=== PATIENT | male | born 1980 | race Caucasian/White ===

== ENCOUNTER 2017-10-19 18:51 | Emergency (ER) | payer BC ==
[2017-10-19] MEDS ORDERED: Ketorolac 30 MG/ML SDV IVPUSH ONE (19:32)
[2017-10-19] MEDS ORDERED: Sodium Chloride 0.9% 1,000 ML IV ONE (19:32)
[2017-10-19] MEDS ORDERED: Sodium Chloride 0.9% 10 ML Syringe FLUSH PRN (19:32)
[2017-10-19] MEDS ORDERED: Sodium Chloride 0.9% 2.5 ML Syringe FLUSH PRN (19:32)
[2017-10-19] MEDS ORDERED: HYDROmorphone 2 MG/ML Syringe IVPUSH ONE (19:32)
--- NOTE | 2017-10-19 19:37 | EDM.PDOC ---
ED HPI GENERAL MEDICAL PROBLEM - General Chief Complaint: Back Pain or Injury Stated Complaint: PT HAS LOWER BACK PAIN Time Seen by Provider: 10/19/17 19:26 - History of Present Illness INITIAL COMMENTS - FREE TEXT/NARRATIVE: HISTORY AND PHYSICAL: History of present illness: The patient is a 36-year-old male with a history of one kidney stone in the past which he passed spontaneously and episodic lower back pain due to his work who presents with a 6-7 day history of left lower back and flank pain that seems atypical for his lower back pain. The patient says he has had episodes of sciatica in the past and this does not feel the same. The pain is localized to the lower back and flank area and does not radiate to his leg and buttocks or his abdomen. He has no fever chills hematuria or dysuria but has had frequency of urination. He says he drinks a lot of water and he is in a monogamous relationship with his and denies STDs. The patient said he has had some subjective sweating and fevers but he has not taken his temperature over the course of this pain. The patient has not taken any medication over the last 24 hours and last took a diclofenac yesterday afternoon. He says the pain as a dull achy pain which waxes and wanes in intensity but is still able to go to work. The patient denies any recent trauma and has no midline back pain. He has no bowel or bladder disturbances. Patient denies any right-sided abdominal pain or back/flank pain. Review of systems: As per history of present illness and below otherwise all systems reviewed and negative. Past medical history: As per history of present illness and as reviewed below otherwise noncontributory. Surgical history: As per history of present illness and as reviewed below otherwise noncontributory. Social history: No reported history of drug or alcohol abuse. Family history: As per history of present illness and as reviewed below otherwise noncontributory. Physical exam: General: Well-developed overweight male who is nontoxic and moves easily in the ED. Vital signs are noted by me HEENT: Atraumatic, normocephalic, negative for conjunctival pallor or scleral icterus, mucous membranes moist, throat clear, neck supple, nontender, trachea midline. Lungs: Clear to auscultation, breath sounds equal bilaterally, chest nontender. Heart: S1S2, regular and rhythm no overt murmurs. Abdomen: Soft, nondistended, nontender. Negative for masses or hepatosplenomegaly. Negative for costovertebral tenderness. Pelvis: Stable nontender. Genitourinary: Deferred. Rectal: Deferred. Extremities: Atraumatic, negative for cords or calf pain. Neurovascular unremarkable. Neuro: Awake, alert, oriented. Cranial nerves II through XII unremarkable. Cerebellum unremarkable. Motor and sensory unremarkable throughout. Exam nonfocal. Dorsi and plantar flexion are intact 5/5 inclusive of the great toe and tone is normal throughout Back: There are no midline step-offs tenderness defects of the thoracic or lumbar spine no posterior rib tenderness no discrete CVA tenderness and on palpation of the left lumbar paraspinal musculature I am not able to reproduce the pain exactly. Diagnostics: UA urine culture CBC CMP CT scan of the abdomen and pelvis Therapeutics: IV IV fluids Toradol Dilaudid Patient is aware of all testing results and has diclofenac at home I will give him Norflex as well. I've advised him on ice after activities he subsequently and stretching. We've also talked about follow-up Impression: Left lumbar back pain Definitive disposition and diagnosis as appropriate pending reevaluation and review of above. Left Flank Pain Score (Numeric/FACES): 7 - Related Data Allergies Allergy/AdvReac Type Severity Reaction Status Date / Time cephalexin [From Keflex] Allergy Other Verified 10/19/17 19:13 Penicillins Allergy Anaphylactic Verified 10/19/17 19:13 Shock Home Meds: Home Meds . [No Known Home Meds] 10/19/17 [History] Past Medical History - Past Health History Medical/Surgical History: Denies Medical/Surgical History Social & Family History - Tobacco Use Smoking Status *Q: Never Smoker Second Hand Smoke Exposure: No - Caffeine Use Caffeine Use: Reports: Soda - Recreational Drug Use Recreational Drug Use: No ED ROS GENERAL - Review of Systems Review Of Systems: ROS reveals no pertinent complaints other than HPI. ED EXAM, GENERAL - Physical Exam Exam: See Below (see dictation) Course - Vital Signs Last Recorded V/S: Last Vital Signs Temp 36.3 C 10/19/17 19:13 Pulse 81 10/19/17 19:13 Resp 18 10/19/17 19:13 BP 136/83 10/19/17 19:13 Pulse Ox 97 10/19/17 19:13 - Orders/Labs/Meds Orders: Active Orders 24 hr Category Date Time Status Abdomen Pelvis wo Cont [CT] Stat Exams 10/19/17 19:32 Taken CULTURE URINE [RM] Stat Lab 10/19/17 19:10 Received UA W/MICROSCOPIC [URIN] Stat Lab 10/19/17 19:10 Ordered Sodium Chloride 0.9% [Saline Flush] Med 10/19/17 19:32 Active 10 ml FLUSH ASDIRECTED PRN Sodium Chloride 0.9% [Saline Flush] Med 10/19/17 19:32 Active 2.5 ml FLUSH ASDIRECTED PRN Saline Lock Insert [OM.PC] Stat Oth 10/19/17 19:32 Ordered Medication Orders Sodium Chloride (Saline Flush) 10 ml FLUSH ASDIRECTED PRN PRN Reason: Keep Vein Open Last Admin: 10/19/17 19:52 Dose: 10 ml Sodium Chloride (Saline Flush) 2.5 ml FLUSH ASDIRECTED PRN PRN Reason: Keep Vein Open Last Admin: 10/19/17 19:54 Dose: 2.5 ml Labs: Laboratory Tests 10/19/17 10/19/17 10/19/17 Range/Units 19:10 19:38 19:38 WBC 8.02 (4.0-11.0) K/uL RBC 5.13 (4.50-5.90) M/uL Hgb 15.9 (13.0-17.0) g/dL Hct 43.6 (38.0-50.0) % MCV 85.0 (80.0-98.0) fL MCH 31.0 (27.0-32.0) pg MCHC 36.5 (31.0-37.0) g/dL RDW Std Deviation 39.8 (28.0-62.0) fl RDW Coeff of Jacob 13 (11.0-15.0) % Plt Count 276 (150-400) K/uL MPV 10.30 (7.40-12.00) fL Neut % (Auto) 68.6 (48.0-80.0) % Lymph % (Auto) 22.1 (16.0-40.0) % [place] % (Auto) 6.2 (0.0-15.0) % Eos % (Auto) 2.6 (0.0-7.0) % Baso % (Auto) 0.5 (0.0-1.5) % Neut # (Auto) 5.5 (1.4-5.7) K/uL Lymph # (Auto) 1.8 (0.6-2.4) K/uL [place] # (Auto) 0.5 (0.0-0.8) K/uL Eos # (Auto) 0.2 (0.0-0.7) K/uL Baso # (Auto) 0.0 (0.0-0.1) K/uL Nucleated RBC % 0.0 /100WBC Nucleated RBCs # 0 K/uL Sodium 142 (136-148) mmol/L Potassium 3.7 (3.5-5.1) mmol/L Chloride 108 H (98-107) mmol/L Carbon Dioxide 26.0 (21.0-32.0) mmol/L BUN 14 (7.0-18.0) mg/dL Creatinine 1.0 (0.8-1.3) mg/dL Est Cr Clr Drug Dosing 106.46 mL/min Estimated GFR (MDRD) > 60.0 ml/min Glucose 124 H (74-106) mg/dL Calcium 8.6 (8.5-10.1) mg/dL Total Bilirubin 0.4 (0.2-1.0) mg/dL AST 28 (15-37) IU/L ALT 40 (14-63) IU/L Alkaline Phosphatase 60 (46-116) U/L Total Protein 6.9 (6.4-8.2) g/dL Albumin 3.7 (3.4-5.0) g/dL Globulin 3.2 (2.0-3.5) g/dL Albumin/Globulin Ratio 1.2 L (1.3-2.8) Urine Color YELLOW Urine Appearance CLEAR Urine pH 6.0 (5.0-8.0) Ur Specific [place] 1.020 (1.001-1.035) Urine Protein NEGATIVE (NEGATIVE) mg/dL Urine Glucose (UA) NEGATIVE (NEGATIVE) mg/dL Urine Ketones NEGATIVE (NEGATIVE) mg/dL Urine Occult Blood NEGATIVE (NEGATIVE) Urine Nitrite NEGATIVE (NEGATIVE) Urine Bilirubin NEGATIVE (NEGATIVE) Urine Urobilinogen 1.0 (<2.0) EU/dL Ur Leukocyte Esterase NEGATIVE (NEGATIVE) Urine RBC 0-1 (0-2/HPF) Urine WBC 0-1 (0-5/HPF) Ur Epithelial Cells RARE (NONE-FEW) Urine Bacteria RARE (NEGATIVE) Meds: Medications Generic Name Dose Route Start Last Admin Trade Name Freq PRN Reason Stop Dose Admin Sodium Chloride 10 ml 10/19/17 19:32 10/19/17 19:52 Saline Flush FLUSH 10 ml ASDIRECTED PRN Administration Keep Vein Open Sodium Chloride 2.5 ml 10/19/17 19:32 10/19/17 19:54 Saline Flush FLUSH 2.5 ml ASDIRECTED PRN Administration Keep Vein Open Discontinued Medications Generic Name Dose Route Start Last Admin Trade Name Freq PRN Reason Stop Dose Admin Hydromorphone HCl 0.5 mg 10/19/17 19:32 10/19/17 19:54 Dilaudid IVPUSH 10/19/17 19:33 Not Given ONETIME ONE Hydromorphone HCl 0.5 mg 10/19/17 19:43 10/19/17 19:52 Dilaudid IVPUSH 10/19/17 19:44 0.5 mg ONETIME ONE Administration Sodium Chloride 1,000 mls @ 999 mls/hr 10/19/17 19:32 10/19/17 19:49 Normal Saline IV 10/19/17 20:32 999 mls/hr STAT ONE Administration Ketorolac Tromethamine 30 mg 10/19/17 19:32 10/19/17 19:50 Toradol IVPUSH 10/19/17 19:33 30 mg ONETIME ONE Administration Departure - Departure Time of Disposition: 20:37 Disposition: Home, Self-Care 01 Condition: Good Clinical Impression: Lumbar back pain - Discharge Information Referrals: PCP,None [Primary Care Provider] - Forms: ED Department Discharge Additional Instructions: The following information is given to patients seen in the emergency department who are being discharged to home. This information is to outline your options for follow-up care. We provide all patients seen in our emergency department with a follow-up referral. The need for follow-up, as well as the timing and circumstances, are variable depending upon the specifics of your emergency department visit. If you don't have a primary care physician on staff, we will provide you with a referral. We always advise you to contact your personal physician following an emergency department visit to inform them of the circumstance of the visit and for follow-up with them and/or the need for any referrals to a consulting specialist. The emergency department will also refer you to a specialist when appropriate. This referral assures that you have the opportunity for followup care with a specialist. All of these measure are taken in an effort to provide you with optimal care, which includes your followup. Under all circumstances we always encourage you to contact your private physician who remains a resource for coordinating your care. When calling for followup care, please make the office aware that this follow-up is from your recent emergency room visit. If for any reason you are refused follow-up, please contact the [facility] emergency department at and ask to speak to the emergency department charge nurse. [facility] Primary care- Internal Medicine and Family [facility] [address] Use ice after any activities including going to work and then switch to heat after an hour or 2. Try to stretch and open up the area and get adequate rest. Use the medications you have at home and at the muscle relaxer but only take it when you're at home. Please call and follow-up with one of our providers in the clinic in the next few days for reevaluation and further care and return to ER as needed and as discussed - My Orders Last 24 Hours: My Active Orders 10/19/17 19:10 CULTURE URINE [RM] Stat UA W/MICROSCOPIC [URIN] Stat 10/19/17 19:32 Abdomen Pelvis wo Cont [CT] Stat Sodium Chloride 0.9% [Saline Flush] 10 ml FLUSH ASDIRECTED PRN Sodium Chloride 0.9% [Saline Flush] 2.5 ml FLUSH ASDIRECTED PRN Saline Lock Insert [OM.PC] Stat - Assessment/Plan Last 24 Hours: My Active Orders 10/19/17 19:10 CULTURE URINE [RM] Stat UA W/MICROSCOPIC [URIN] Stat 10/19/17 19:32 Abdomen Pelvis wo Cont [CT] Stat Sodium Chloride 0.9% [Saline Flush] 10 ml FLUSH ASDIRECTED PRN Sodium Chloride 0.9% [Saline Flush] 2.5 ml FLUSH ASDIRECTED PRN Saline Lock Insert [OM.PC] Stat
[2017-10-19] MEDS ORDERED: HYDROmorphone 2 MG/ML SDV IVPUSH ONE (19:43)
[2017-10-19 20:07] LABS: CHLORIDE,CL 108 mmol/L (98-107); SODIUM,NA 142 mmol/L (136-148)
--- NOTE | 2017-10-20 09:49 | CT ---
EXAM DATE: 10/19/17 PATIENT'S AGE: 36 Patient: SHANAE HOPE Facility: [place], [place] Site . Site : 1980 Study: CT Abdomen/Pelvis wo cont [id number]/4/2018 8:17:39 PM Ordering Physician: Walter Kaba Final Report: INDICATION: Flank pain for 1 week. Off and on back pain. Increased urination. History of prior kidney stones. TECHNIQUE: CT abdomen and pelvis without contrast. COMPARISON: None. FINDINGS: Scientific Artist CT images: Nonobstructive bowel gas pattern. Lower chest: Unremarkable. Tiny pericardial effusion. Liver: Unremarkable. Spleen: Unremarkable. Pancreas: Unremarkable. Gallbladder and bile ducts: Unremarkable. Adrenal glands: Indeterminate right adrenal nodule measures 2.5 centimeters on series 201, image 50. Attenuation of 25-30 Hounsfield units. Left adrenal gland normal. Kidneys: Unremarkable. No kidney or ureteral stones and no hydronephrosis. GI tract: Unremarkable. Appendix is normal. Vascular structures: Unremarkable. Lymph nodes: Unremarkable. Miscellaneous: Unremarkable. No free air or significant free fluid. Pelvic Organs: Unremarkable. Bones: T12 vertebral body hemangioma, series 204, image 84. IMPRESSION: 1. No obstructing renal or ureteral calculi. No hydronephrosis. 2. Indeterminate right adrenal nodule, size 2.5 centimeters. Recommend non- emergent followup with dedicated adrenal mass CT without and with IV contrast. 3. Normal appendix. 4. Trace pericardial effusion. Dictated by Matias Salinas MD @ 10/19/2017 8:29:27 PM Dictated by: Matias Salinas MD @ 10/19/2017 20:29:32 (Electronic Signature) Report Signed by Proxy. [facility]
== END 2017-10-19 21:15 | disposition home or self-care (01) ==
LOC: MW.ED 18:51
DX: M54.5 Low back pain (principal); Z88.1 Allergy status to other antibiotic agents; Z88.0 Allergy status to penicillin
CPT/HCPCS: 36415; 74176; 80053; 81001; 85025; 87086; J1170; J1885; J7040; 96361; 96374; 96375; 99283; 99284-25

== ENCOUNTER 2018-03-19 10:44 | Emergency (ER) | payer BC ==
[2018-03-19] MEDS ORDERED: Ketorolac 60 MG/2 ML SDV IM ONE ×2 (11:01)
--- NOTE | 2018-03-19 11:05 | EDM.PDOC ---
ED HPI GENERAL MEDICAL PROBLEM - General Chief Complaint: Lower Extremity Injury/Pain Stated Complaint: RT KNEE HURTS Time Seen by Provider: 03/19/18 10:59 - History of Present Illness INITIAL COMMENTS - FREE TEXT/NARRATIVE: HISTORY AND PHYSICAL: History of present illness: Patient 37-year-old white male presents concern of acute right knee injury that occurred 2 days prior he is a prior knee surgery and injury. Motor concern Review of systems: As per history of present illness and below otherwise all systems reviewed and negative. Past medical history: As per history of present illness and as reviewed below otherwise noncontributory. Surgical history: As per history of present illness and as reviewed below otherwise noncontributory. Social history: No reported history of drug or alcohol abuse. Family history: As per history of present illness and as reviewed below otherwise noncontributory. Physical exam: HEENT: Atraumatic, normocephalic, pupils reactive, negative for conjunctival pallor or scleral icterus, mucous membranes moist, throat clear, neck supple, nontender, trachea midline. Lungs: Clear to auscultation, breath sounds equal bilaterally, chest nontender. Heart: S1S2, regular, negative for clicks, rubs, or JVD. Abdomen: Soft, nondistended, nontender. Negative for masses or hepatosplenomegaly. Negative for costovertebral tenderness. Pelvis: Stable nontender. Genitourinary: Deferred. Rectal: Deferred. Extremities: Right knee has moderate tenderness over anterior tibia there is small swallowing joint is grossly stable CMS neurovascular exam is unremarkable Neuro: Awake, alert, oriented. Cranial nerves II through XII unremarkable. Cerebellum unremarkable. Motor and sensory unremarkable throughout. Exam nonfocal. Diagnostics: X-ray right knee Therapeutics: Toradol 60 mg IM knee immobilizer/crutches Impression: #1 acute right knee injury Definitive disposition and diagnosis as appropriate pending reevaluation and review of above. Right Knee Pain Score (Numeric/FACES): 2 - Related Data Allergies Allergy/AdvReac Type Severity Reaction Status Date / Time cephalexin [From Keflex] Allergy Other Verified 03/19/18 10:58 Penicillins Allergy Anaphylactic Verified 03/19/18 10:58 Shock Home Meds: Home Meds . [No Known Home Meds] 10/19/17 [History] Past Medical History - Past Health History Medical/Surgical History: Denies Medical/Surgical History Social & Family History - Caffeine Use Caffeine Use: Reports: Soda Review of Systems - Review of Systems Review Of Systems: ROS reveals no pertinent complaints other than HPI. ED EXAM, GENERAL - Physical Exam Exam: See Below (dictation) Course - Vital Signs Last Recorded V/S: Last Vital Signs Temp 35.8 C 03/19/18 10:55 Pulse 81 03/19/18 10:55 Resp 18 03/19/18 10:55 BP 129/87 03/19/18 10:55 Pulse Ox 97 03/19/18 10:55 - Orders/Labs/Meds Orders: Active Orders 24 hr Category Date Time Status Knee 3V Rt [CR] Stat Exams 03/19/18 11:01 Ordered Meds: Medications Discontinued Medications Generic Name Dose Route Start Last Admin Trade Name Freq PRN Reason Stop Dose Admin Ketorolac Tromethamine 60 mg 03/19/18 11:01 Toradol IM 03/19/18 11:02 ONETIME ONE Ketorolac Tromethamine 60 mg 03/19/18 11:01 Toradol IM 03/19/18 11:02 ONETIME ONE Departure - Departure Time of Disposition: 11:04 Disposition: Home, Self-Care 01 Condition: Good Clinical Impression: Knee injury - Discharge Information *PRESCRIPTION DRUG MONITORING PROGRAM REVIEWED*: Not Applicable *COPY OF PRESCRIPTION DRUG MONITORING REPORT IN PATIENT GARIMA: Not Applicable Referrals: PCP,None [Primary Care Provider] - Additional Instructions: The following information is given to patients seen in the emergency department who are being discharged to home. This information is to outline your options for follow-up care. We provide all patients seen in our emergency department with a follow-up referral. The need for follow-up, as well as the timing and circumstances, are variable depending upon the specifics of your emergency department visit. If you don't have a primary care physician on staff, we will provide you with a referral. We always advise you to contact your personal physician following an emergency department visit to inform them of the circumstance of the visit and for follow-up with them and/or the need for any referrals to a consulting specialist. The emergency department will also refer you to a specialist when appropriate. This referral assures that you have the opportunity for followup care with a specialist. All of these measure are taken in an effort to provide you with optimal care, which includes your followup. Under all circumstances we always encourage you to contact your private physician who remains a resource for coordinating your care. When calling for followup care, please make the office aware that this follow-up is from your recent emergency room visit. If for any reason you are refused follow-up, please contact the [facility] emergency department at and asked to speak to the emergency department charge nurse. [facility] Special[facility] - Orthopedic Clinic [address], [address] [place] [address] Ultram as prescribed follow-up orthopedic clinic above: Schedule routine appointment knee immobilizer crutches as directed return as needed as discussed - My Orders Last 24 Hours: My Active Orders 03/19/18 11:01 Knee 3V Rt [CR] Stat - Assessment/Plan Last 24 Hours: My Active Orders 03/19/18 11:01 Knee 3V Rt [CR] Stat
--- NOTE | 2018-03-20 13:35 | CR ---
EXAM DATE: 03/19/18 PATIENT'S AGE: 37 Patient: SHANAE HOPE Facility: [place], [place] Site . Site : 1980 Study: XRay Knee Right [id number]/2/2018 11:24:45 AM Ordering Physician: Harshad Rincon Final Report: INDICATION: hurt knee on rig HISTORY: Knee pain. COMPARISON: None. TECHNIQUE: Right knee, 3 views. FINDINGS: Lucencies are present about the right proximal tibia, which are postsurgical in nature. The joint spaces are preserved. There is no depression of either tibial plateau. No acute bone abnormality is seen. No significant suprapatellar joint effusion. No patellar subluxation or tilt on the Merchant/sunrise radiograph. IMPRESSION: No acute bone abnormality. Dictated by Josh Green MD @ 03/19/2018 11:26:51 AM Dictated by: Josh Green MD @ 03/19/2018 11:26:56 (Electronic Signature) Report Signed by Proxy. [facility]ITAL[facility]
== END 2018-03-19 12:22 | disposition home or self-care (01) ==
LOC: MW.ED 10:44
DX: S89.91XA Unspecified injury of right lower leg, initial encounter (principal); Z88.0 Allergy status to penicillin; Z88.1 Allergy status to other antibiotic agents; W11.XXXA Fall on and from ladder, initial encounter; Y93.39 Activity, other involving climbing, rappelling and jumping off; Y99.0 Civilian activity done for income or pay
CPT/HCPCS: 73562; 96372; 99283; J1885

== ENCOUNTER 2024-09-09 21:42 | Emergency (ER) | payer BC ==
[2024-09-09] MEDS: Benzonatate 100 MG Cap PO ONE (22:14)
[2024-09-09] MEDS: Albuterol/Ipratropium 3.0-0.5 MG/3 ML Neb Soln NEB ONE (22:14)
[2024-09-10] MEDS: predniSONE 20 MG Tab PO ONE (01:07)
[2024-09-10] MEDS: Levofloxacin 500 MG Tab PO ONE (01:07)
== END 2024-09-10 01:20 | disposition home or self-care (01) ==
LOC: MW.ED 21:42
DX: J98.01 Acute bronchospasm (principal); J40 Bronchitis, not specified as acute or chronic; Z79.899 Other long term (current) drug therapy; Z88.1 Allergy status to other antibiotic agents; Z88.0 Allergy status to penicillin
CPT/HCPCS: 71046; 99285; A9270; J7620-GY

== ENCOUNTER 2024-09-30 15:32 | Emergency (ER) | payer BC ==
[2024-09-30] MEDS: Sodium Chloride 0.9% 1,000 ML IV ONE (16:44)
[2024-09-30] MEDS: Orphenadrine 60 MG/2 ML Inj IV ONE (16:44)
[2024-09-30] MEDS: Ketorolac 30 MG/ML SDV IVPUSH ONE (16:44)
[2024-09-30 16:51] LABS: BASOPHILS ABSOLUTE AUTO 0.08 K/uL (0.00-0.20); BASOPHILS PERCENT AUTO 0.6 % (0.0-1.0); EOSINOPHILS ABSOLUTE AUTO 0.13 K/uL (0.00-0.45); HEMATOCRIT 44.4 % (42.0-52.0); HEMOGLOBIN 16.1 g/dL (14.0-18.0); IMMATURE GRAN ABSOLUTE AUTO 0.13 K/uL (0.00-0.05); LYMPHOCYTES ABSOLUTE AUTO 3.89 K/uL (1.00-4.80); LYMPHOCYTES PERCENT AUTO 30.1 % (24.0-44.0); MEAN CORPUSCULAR HEMOGLOBIN 30.5 pg (28.0-32.0); MEAN CORPUSCULAR HGB CONC 36.3 g/dL (32.0-36.0); MEAN CORPUSCULAR VOLUME 84.1 fL (83.0-99.0); MEAN PLATELET VOLUME 9.9 fL (9.4-12.4); MONOCYTES ABSOLUTE AUTO 0.98 K/uL (0.00-0.80); MONOCYTES PERCENT AUTO 7.6 % (0.0-8.0); NEUTROPHILS PERCENT AUTO 59.7 % (41.0-71.0); PLATELET COUNT,PLT 259 K/uL (150-400); RED BLOOD CELL COUNT 5.28 M/uL (4.52-5.90); WHITE BLOOD CELL COUNT,WBC 12.91 K/uL (3.9-11.3)
[2024-09-30 17:19] LABS: ALBUMIN 3.2 g/dL (3.4-5.0); BILIRUBIN TOTAL 0.5 mg/dL (0.2-1.0); CALCIUM 8.7 mg/dL (8.5-10.1); CARBON DIOXIDE,CO2 26.3 mmol/L (21.0-32.0); EST CRCL DRUG DOSING (CG) 99.36 mL/min; MAGNESIUM 1.8 mg/dL (1.8-2.4); POTASSIUM,K 3.1 mmol/L (3.5-5.1); PROTEIN TOTAL,TP 6.5 g/dL (6.4-8.2)
[2024-09-30] MEDS: Potassium Chloride 20 MEQ Tab.ER PO ONE (18:17)
[2024-09-30 18:29] LABS: APPEARANCE,URINE CLEAR; BILIRUBIN,URINE NEGATIVE (NEGATIVE); COLOR,URINE YELLOW; GLUCOSE,URINE NEGATIVE (NEGATIVE); KETONES,URINE TRACE mg/dL (NEGATIVE); LEUKOCYTE ESTERASE,URINE NEGATIVE (NEGATIVE); NITRITE,URINE NEGATIVE (NEGATIVE); OCCULT BLOOD,URINE NEGATIVE (NEGATIVE); PH,URINE 5.5 (5.0-8.0); PROTEIN,URINE NEGATIVE (NEGATIVE)
[2024-09-30] MEDS: Ondansetron 4 MG/2 ML SDV IVPUSH ONE (18:33)
[2024-09-30] MEDS: Acetaminophen/oxyCODONE 325-5 MG Tab PO ONE (18:33)
[2024-09-30] MEDS: Morphine 4 MG/ML Syringe IVPUSH ONE (18:34)
== END 2024-09-30 18:51 | disposition home or self-care (01) ==
LOC: MW.ED 15:32
DX: M54.9 Dorsalgia, unspecified (principal); Z75.8 Other problems related to medical facilities and other health care; Z88.0 Allergy status to penicillin; Z88.1 Allergy status to other antibiotic agents
CPT/HCPCS: 36415; 80053; 81003; 83690; 83735; 85025; 96361; 96374; 96375; 99283; A9270; J1100; J1885; J2270; J2360; J2405; J7030; 99284